=== PATIENT | male | born 1955 | race Caucasian/White ===

== ENCOUNTER 2019-09-22 09:28 | Inpatient (IN) ==
[2019-09-22] MEDS ORDERED: Clindamycin 900 MG/50 ML 900 MG/50 ML IV.SOLN IVPB ONE (09:52)
[2019-09-22] MEDS ORDERED: Albuterol 2.5 MG/3 ML NEBULIZER IH PRN ×2 (09:57→10:13)
[2019-09-22] MEDS ORDERED: *HR* Rocuronium Bromide 50 MG/5 ML VIAL ONE (09:59)
[2019-09-22] MEDS ORDERED: *HR* PHENYLEPHRINE 1,000 MCG/10 ML SYRINGE IVP ONE (09:59)
[2019-09-22] MEDS ORDERED: Dexamethasone 4 MG/ML VIAL ONE (09:59)
[2019-09-22] MEDS ORDERED: Ondansetron 4 MG/2 ML VIAL ONE (09:59)
[2019-09-22] MEDS ORDERED: *HR* Midazolam HCl 2 MG/2 ML VIAL ONE (09:59)
[2019-09-22] MEDS ORDERED: Lidocaine -MPF 2% 2 ML VIAL ONE (09:59)
[2019-09-22] MEDS ORDERED: *HR* Succinylcholine 200 MG/10 ML VIAL IVP ONE (09:59)
[2019-09-22] MEDS ORDERED: *HR* Propofol 200 MG/20 ML VIAL IVP ONE (09:59)
[2019-09-22] MEDS ORDERED: *HR* FentaNYL (PF) 100 MCG/2 ML VIAL ONE ×2 (09:59→11:47)
[2019-09-22] MEDS ORDERED: Ringers Solution, Lactated 1,000 ML IVC SCH (10:00)
[2019-09-22] MEDS ORDERED: *HR* OxyCODONE Immed Rel 5 MG TABLET PO PRN (10:13)
[2019-09-22] MEDS ORDERED: *HR* Promethazine 25 MG/ML VIAL IVP PRN (10:13)
[2019-09-22] MEDS ORDERED: *HR* Midazolam HCl 2 MG/2 ML VIAL IVP PRN (10:13)
[2019-09-22] MEDS ORDERED: *HR* Labetalol 20 MG/4 ML SYRINGE IVP PRN (10:13)
[2019-09-22] MEDS ORDERED: Famotidine 20 MG/2 ML VIAL IVP ONE (10:13)
[2019-09-22] MEDS ORDERED: Ondansetron 4 MG/2 ML VIAL IVP ONE (10:13)
[2019-09-22] MEDS ORDERED: Acetaminophen IV 1,000 MG/100 ML INFUS..BTL IVPB ONE (10:13)
[2019-09-22] MEDS ORDERED: Gabapentin 300 MG CAPSULE PO ONE (10:13)
[2019-09-22] MEDS: *HR* HYDROmorphone (PF) 1 MG/ML SYRINGE IVP PRN ×2 (13:21→13:26)
[2019-09-22] MEDS ORDERED: Naloxone 0.4 MG/ML INJ IVP PRN (14:02)
[2019-09-22] MEDS ORDERED: ALPRAZolam 1 MG TABLET PO PRN (14:02)
[2019-09-22] MEDS ORDERED: Ondansetron 4 MG/2 ML VIAL IVP PRN (14:02)
[2019-09-22] MEDS: Gabapentin 300 MG CAPSULE PO SCH ×2 (15:53→20:32)
[2019-09-22] MEDS: *HR* Heparin 5,000 UNIT/ML VIAL SQ SCH ×2 (15:53→20:34)
[2019-09-22] MEDS: *HR* HYDROcodone/Acet 5/325 mg TABLET PO PRN ×2 (15:53→20:30)
[2019-09-22] MEDS: Ketorolac 15 MG/ML VIAL IVP SCH (17:30)
[2019-09-22] MEDS: Sennosides/Docusate Sodium TABLET PO SCH (20:32)
[2019-09-22] MEDS: Famotidine 20 MG TABLET PO SCH (20:32)
[2019-09-23] MEDS: Ketorolac 15 MG/ML VIAL IVP SCH ×2 (00:41→06:17)
[2019-09-23] MEDS: *HR* HYDROcodone/Acet 5/325 mg TABLET PO PRN ×2 (00:41→06:17)
[2019-09-23 05:47] LABS: Hematocrit 35.4 % (37.5-50.1); Hemoglobin 12.3 g/dL (12.9-16.9); Mean Corpuscular HGB Conc 34.7 g/dL (31.6-35.5); Mean Corpuscular Hemoglobin 33.1 pg (28.0-33.3); Mean Corpuscular Volume 95.2 fL (83.0-100.0); Mean Platelet Volume 9.8 fL (9.4-12.4); Platelet Count 220 K/mcL (140-400); Red Blood Count 3.72 M/mcL (4.19-5.50); Red Cell Distribution Width 12.6 % (11.5-14.5); White Blood Count 16.5 K/mcL (4.3-11.1)
[2019-09-23 06:07] LABS: % Iron Saturation 12 % (20-55); BUN/Creatinine Ratio 14 (6-26); Blood Urea Nitrogen 12 mg/dL (8-23); Calcium 9.2 mg/dL (8.6-10.3); Carbon Dioxide 27 mEq/L (23-29); Chloride 96 mEq/L (98-107); Glucose 123 mg/dL (70-105); Iron 44 mcg/dL (65-175); Magnesium 1.8 mg/dL (1.6-2.6); Osmolality,Calculated 273 (280-300); Potassium 4.7 mEq/L (3.5-5.1); Sodium 131 mEq/L (136-145); Transferrin 255 mg/dL (203-362); eGFR For African Americans > 60 (> 60); eGFR For Non-African Americans > 60 (> 60)
[2019-09-23] MEDS: *HR* Heparin 5,000 UNIT/ML VIAL SQ SCH ×2 (06:18→14:52)
[2019-09-23] MEDS: Gabapentin 300 MG CAPSULE PO SCH ×2 (08:28→14:46)
[2019-09-23] MEDS: Sennosides/Docusate Sodium TABLET PO SCH (08:28)
[2019-09-23] MEDS: Famotidine 20 MG TABLET PO SCH (08:28)
[2019-09-23] MEDS ORDERED: Folic Acid 1 MG TABLET PO SCH (09:00)
[2019-09-23] MEDS ORDERED: Iron Sucrose Complex 400 MG in 0.9 % Sodium Chloride 250 ML IVPB ONE (09:27)
[2019-09-23 11:19] VITALS: BP 107/61
[2019-09-24] MEDS ORDERED: *HR* Methotrexate 2.5 MG TABLET PO SCH (13:02)
== END 2019-09-23 15:07 | disposition home or self-care (01) | DRG 204 ==
LOC: SAMDAY 09:28 → 2NNU 14:14
PROVIDERS: ADMIT Thoracic Surgery (Cardiothoracic Vascular Surgery); ATTEND Thoracic Surgery (Cardiothoracic Vascular Surgery)